=== PATIENT | male | born 1960 | race Caucasian/White ===

== ENCOUNTER → 2021-08-30 | Outpatient (CLI) | payer OTHER ==
[~2021-08-30] MED LIST: ADVIL100 M1 PO; PRILOSEC20 M1 PO; ZANTAC 150150 MG PO
[2021-08-30 10:53] LABS: BUN 5 mg/dl (7-24); CREATININE 0.46 mg/dL (0.70-1.30)
== END | disposition home or self-care (01) ==
LOC: CT 10:16
PROVIDERS: ATTEND Internal Medicine Critical Care Medicine
DX: Z01.812 Encounter for preprocedural laboratory examination (principal); R91.8 Other nonspecific abnormal finding of lung field; J44.9 Chronic obstructive pulmonary disease, unspecified

== ENCOUNTER 2021-09-12 16:01 | Inpatient (IN) | payer OTHER ==
[~2021-09-12] VITALS: Ht 180.3 cm; Wt 87.2 kg
[2021-09-12 16:33] VITALS: BP 137/76
[2021-09-12 18:29] LABS: BASO # 0.1 10*3/uL (0.0-0.1); BASO % 0.7 % (0.0-1.0); EOS # 0.2 10*3/uL (0.0-0.4); EOS % 1.8 % (1.0-4.0); HEMATOCRIT 43.2 % (42.0-52.0); LYMPH # 2.4 10*3/uL (1.3-4.4); LYMPH % 23.1 % (27.0-41.0); MEAN CELL VOLUME 97.3 fl (80.0-94.0); MEAN CORPUSCULAR HGB 32.7 pg (27.0-31.0); MEAN CORPUSCULAR HGB CONC 33.6 g/dl (33.0-37.0); MEAN PLATELET VOLUME 8.6 fl (9.6-12.3); MONO # 0.9 10*3/uL (0.1-1.0); MONO % 8.3 % (3.0-9.0); NEUT # 6.8 10*3/uL (2.3-7.9); NEUT % 65.7 % (47.0-73.0); PLATELET COUNT AUTOMATED 324 10*3/uL (130-400); RED BLOOD COUNT 4.44 10*6/uL (4.50-5.90); RED CELL DISTRI WIDTH 12.8 % (0-14.5); WHITE BLOOD COUNT 10.3 10*3/uL (4.8-10.8)
[2021-09-12] MEDS ORDERED: PROVENTIL HFA6.7 GM INH (18:38)
[2021-09-12] MEDS ORDERED: OMEPRAZOLE40 MG PO (18:38)
[2021-09-12 18:44] LABS: ALBUMIN 3.8 gm/dl (3.1-4.5); ALKALINE PHOSPHATASE 56 U/L (45-117); BUN 2 mg/dl (7-24); CHLORIDE 98 mmol/L (98-107); SGOT/AST 21 IU/L (3-35); SGPT/ALT 25 U/L (12-78); SODIUM 133 mmol/L (136-145); TOTAL PROTEIN 7.5 gm/dL (6.4-8.2)
[2021-09-12 18:49] LABS: INTERNATIONAL NORM RATIO 0.9 (2.0-3.5)
[2021-09-12 21:49] VITALS: BP 139/90
[2021-09-12 22:50] VITALS: BP 127/77
[2021-09-13 06:58] LABS: HEMATOCRIT 43.7 % (42.0-52.0); MEAN CELL VOLUME 97.8 fl (80.0-94.0); MEAN CORPUSCULAR HGB CONC 32.7 g/dl (33.0-37.0); MEAN PLATELET VOLUME 9.5 fl (9.6-12.3); PLATELET COUNT AUTOMATED 303 10*3/uL (130-400); RED BLOOD COUNT 4.47 10*6/uL (4.50-5.90); RED CELL DISTRI WIDTH 12.9 % (0-14.5); WHITE BLOOD COUNT 6.3 10*3/uL (4.8-10.8)
[2021-09-13 07:10] LABS: ALBUMIN 3.4 gm/dl (3.1-4.5); ALKALINE PHOSPHATASE 54 U/L (45-117); BUN 5 mg/dl (7-24); CHLORIDE 98 mmol/L (98-107); CREATININE 0.42 mg/dL (0.70-1.30); POTASSIUM 4.5 mmol/L (3.5-5.1); SGOT/AST 16 IU/L (3-35); SGPT/ALT 22 U/L (12-78); SODIUM 131 mmol/L (136-145); TOTAL PROTEIN 7.2 gm/dL (6.4-8.2)
[2021-09-13 07:47] LABS: PLATELET SUFFICIENCY NORMAL (NORMAL); TOTAL CELLS COUNTED 100 #CELLS
[2021-09-13 08:00] VITALS: BP 127/80
[2021-09-13 12:00] VITALS: BP 122/65
[2021-09-13 16:00] VITALS: BP 116/69
[2021-09-13] MEDS ORDERED: PREDNISONE10 MG PO (17:28)
[2021-09-13] MEDS ORDERED: LEVOFLOXACIN500 MG PO (17:28)
== END 2021-09-13 18:33 | disposition home or self-care (01) | DRG 133 ==
LOC: ED 16:01 → EDHOLD 21:27 → 4E 21:27
PROVIDERS: Internal Medicine; Physician Assistant; ADMIT Student in an Organized Health Care Education/Training Program; ATTEND Student in an Organized Health Care Education/Training Program
DX: J96.01 Acute respiratory failure with hypoxia (principal); J44.1 Chronic obstructive pulmonary disease with (acute) exacerbation; E87.1 Hypo-osmolality and hyponatremia; F17.210 Nicotine dependence, cigarettes, uncomplicated; R91.8 Other nonspecific abnormal finding of lung field; F10.10 Alcohol abuse, uncomplicated; K21.9 Gastro-esophageal reflux disease without esophagitis; Z20.822 Contact with and (suspected) exposure to COVID-19; Z82.5 Family history of asthma and other chronic lower respiratory diseases; Z90.49 Acquired absence of other specified parts of digestive tract; Z79.51 Long term (current) use of inhaled steroids; Z71.6 Tobacco abuse counseling

== ENCOUNTER 2022-02-18 19:06 | Emergency (ER) | payer OTHER ==
[~2022-02-18 19:06] MED LIST changes: +ADVAIR 250/501 EA INH; +CITALOPRAM10 MG PO; +LEVOFLOXACIN500 MG PO; +LEVOFLOXACIN750 M2 PO; +OMEPRAZOLE40 MG PO; +PREDNISONE10 MG PO; +PROVENTIL HFA6.7 GM INH; +STIOLTO RESPIMAT4 GM INH
== END 2022-02-18 22:18 | disposition home or self-care (01) ==
LOC: ED 19:06
DX: S43.402A Unspecified sprain of left shoulder joint, initial encounter (principal); S41.112A Laceration without foreign body of left upper arm, initial encounter; Z79.899 Other long term (current) drug therapy; Z90.49 Acquired absence of other specified parts of digestive tract; F17.210 Nicotine dependence, cigarettes, uncomplicated; W18.39XA Other fall on same level, initial encounter; Y93.89 Activity, other specified; Y92.89 Other specified places as the place of occurrence of the external cause; Y99.8 Other external cause status